=== PATIENT | female | born 1985 | race Caucasian/White ===

== ENCOUNTER 2019-06-05 10:54 | Inpatient (IN) ==
[2019-06-05] MEDS ORDERED: LACTATED RINGERS 1,000 ML IV ONE (12:25)
[2019-06-05] MEDS: LACTATED RINGERS 1,000 ML IV SCH (13:36)
[2019-06-05 16:23] LABS: INR 0.8; PT Patient Result 9.2 SECS (9.6-12.2); Partial Thromboplastin Time 22.6 SECS (20.8-36.0)
[2019-06-05 16:29] LABS: Alanine Aminotransferase 17 U/L (13-56); Albumin 2.3 G/DL (3.4-5.0); Alkaline Phosphatase 126 U/L (45-117); Aspartate Amino Transferase 14 U/L (0-37); Bilirubin,Total < 0.39 MG/DL (0.2-1.0); Blood Urea Nitrogen 10 MG/DL (7-18); Calcium 9.4 MG/DL (8.5-10.1); Estimated Glom Filtration Rate 161 ML/MIN; Glucose 73 MG/DL (74-106); Osmolality,Calculated 270.8 MOS/KG (273-304); Total Protein 6.5 G/DL (6.4-8.3)
[2019-06-05 17:18] LABS: Basophils % 0.2 % (0.0-0.8); Eosinophils # 0.1 10*3/uL (0.0-0.87); Eosinophils % 0.7 % (0.00-10.9); Hematocrit 33.3 VOL% (35.7-47.0); Hemoglobin 10.7 GM/DL (12.0-16.0); Immature Granulocytes % 0.4 %; Immature Granulocytes Absolute 0.05 #; Lymphocytes # 2.6 10*3/uL (1.4-4.0); Lymphocytes % 21.5 % (21.3-54.2); Mean Corpuscular HGB Conc 32.1 GM/DL (32-36); Mean Corpuscular Volume 86.3 FL (87-102); Mean Platelet Volume 12.7 FL (9.6-12.0); Monocytes % 7.1 % (1.7-12.7); Neutrophils % 70.1 % (38.7-73.9); Platelet Count 183 T/CUMM (130-400); Red Blood Count 3.86 MC/CUMM (3.8-5.5); Red Cell Distribution Width 13.4 % (9.3-17.3); White Blood Count 12.2 T/CUMM (4-12)
[2019-06-05] MEDS ORDERED: ALUMINUM/MAGNES/SIMETH MAX STR 30 ML UDCUP PO PRN (20:25)
[2019-06-05] MEDS: LABETALOL 100 MG TABLET PO SCH (20:30)
[2019-06-06] MEDS ORDERED: ONDANSETRON 4 MG/2 ML VIAL IV PRN
[2019-06-06] MEDS ORDERED: BUTORPHANOL 2 MG/ML VIAL IV PRN
[2019-06-06] MEDS: BUTORPHANOL 1 MG/ML VIAL IV PRN ×2 (00:18→04:33)
[2019-06-06] MEDS: LACTATED RINGERS 1,000 ML IV SCH ×4 (03:00→13:22)
[2019-06-06] MEDS ORDERED: OXYTOCIN/LR 20 UNIT/1,000 ML BAG IV SCH (06:00)
[2019-06-06] MEDS ORDERED: AMPICILLIN INJ 2,000 MG in SODIUM CHLORIDE 0.9% 100 ML IV ONE (07:00)
[2019-06-06] MEDS: LABETALOL 100 MG TABLET PO SCH (09:14)
[2019-06-06] MEDS ORDERED: MEPERIDINE 50 MG/1 ML VIAL IV PRN (11:00)
[2019-06-06] MEDS ORDERED: AMPICILLIN INJ 1,000 MG in SODIUM CHLORIDE 0.9% 100 ML IV SCH (11:00)
[2019-06-06] MEDS ORDERED: OXYTOCIN/LR 20 UNIT/1,000 ML BAG IV ONE (13:20)
[2019-06-06] MEDS: ENOXAPARIN 100 MG/ML SYRINGE SUBCUT SCH (20:22)
[2019-06-07 07:21] LABS: Basophils % 0.3 % (0.0-0.8); Eosinophils # 0.2 10*3/uL (0.0-0.87); Eosinophils % 1.8 % (0.00-10.9); Hemoglobin 9.4 GM/DL (12.0-16.0); Immature Granulocytes % 0.6 %; Immature Granulocytes Absolute 0.08 #; Lymphocytes # 3.5 10*3/uL (1.4-4.0); Mean Corpuscular HGB Conc 32.4 GM/DL (32-36); Mean Corpuscular Volume 87.6 FL (87-102); Mean Platelet Volume 11.6 FL (9.6-12.0); Monocytes % 5.8 % (1.7-12.7); Neutrophils % 64.5 % (38.7-73.9); Platelet Count 172 T/CUMM (130-400); Red Blood Count 3.31 MC/CUMM (3.8-5.5); Red Cell Distribution Width 13.6 % (9.3-17.3)
[2019-06-07] MEDS ORDERED: IBUPROFEN 800 MG TABLET PO PRN (08:07)
[2019-06-07] MEDS: ENOXAPARIN 100 MG/ML SYRINGE SUBCUT SCH ×3 (08:19→22:33)
[2019-06-08] MEDS: ENOXAPARIN 100 MG/ML SYRINGE SUBCUT SCH (09:59)
[2019-06-08 12:49] VITALS: BP 131/80
== END 2019-06-08 14:45 | disposition home or self-care (01) | DRG 560 ==
LOC: N.LDOUT 10:54 → N.LD 10:54 → N.OB 06-06 13:53
PROVIDERS: ADMIT Obstetrics & Gynecology; ATTEND Obstetrics & Gynecology